=== PATIENT | male | born 1950 | race African-American/Black ===

== ENCOUNTER 2017-06-06 12:39 | Emergency (ER) | payer SELFPAY ==
[2017-06-06 12:58] VITALS: BP 147/67
--- NOTE | 2017-06-06 13:36 | UC ---
Michelle Carrizales Gabriel, scribed for Nancy Porter MD on 06/06/17 at 1322 . Dental HPI - HPI Summary HPI Summary: This patient is a 66 year old M presenting [place] [facility] [place] chief complaint of right sided jaw pain since two weeks ago. The patient rates the pain 8/10 in severity. Patient reports right sided jaw swelling that began 2 days ago and chills. Patient denies fever. Pt contacted his dentist and they cannot get him in until next week, he attempted to pull the tooth himself due to the pain. No intraoral edema. No difficult. no drooling. Patients medication reviewed during this visit. - History of Current Complaint Chief Complaint: UCDentalProblem Stated Complaint: DENTAL PAIN Time Seen by Provider: 06/06/17 13:15 Hx Obtained From: Patient Onset/Duration: Lasting Weeks, Still Present Severity: Moderate Pain Intensity: 8 Pain Scale Used: 0-10 Numeric - Allergies/Home Medications Allergies/Adverse Reactions: Allergies Allergy/AdvReac Type Severity Reaction Status Date / Time MS Lactose [Lactose] AdvReac Intermediate Diarrhea Verified 01/19/12 23:56 SSRIs Allergy Severe Hives Uncoded 01/19/12 23:56 Home Medications: Home Medications Gabapentin [Neurontin 800 mg tab] 800 mg PO BID 06/06/17 [History Confirmed ] PMH/Surg Hx/FS Hx/Imm Hx Previously Healthy: Yes Other Endocrine History: Lyme Psychological History: Schizophrenia - Surgical History Surgical History: None - Family History Known Family History: Negative: Cardiac Disease, Hypertension, Diabetes, Renal Disease, Respiratory Disease, Seizure Disorder, Blood Disorder - Social History Occupation: Unemployed Lives: Alone Alcohol Use: None Substance Use Type: None Smoking Status (MU): Former Smoker - Immunization History Most Recent Influenza Vaccination: DEC 2011 Most Recent Tetanus Shot: UKN Most Recent Pneumonia Vaccination: UKN Review of Systems Constitutional: Chills ENT: Dental Pain, Other - jaw sweling All Other Systems Reviewed And Are Negative: Yes Physical Exam Triage Information Reviewed: Yes Appearance: Well-Appearing, No Pain Distress, Well-Nourished Vital Signs: Initial Vital Signs Temp 98.4 F 06/06/17 12:53 Pulse 69 06/06/17 12:53 Resp 16 06/06/17 12:53 BP 147/67 06/06/17 12:53 Pulse Ox 100 06/06/17 12:53 Vital Signs Reviewed: Yes Eye Exam: Normal Eyes: Positive: Conjunctiva Clear ENT: Positive: Normal ENT inspection, Hearing grossly normal, TMs normal Dental: Positive: Percussion Tenderness @, Gross Decay/Caries @, Other: - Pt with poor dentition Pt with edema and discomfort right lower jaw no fluctuance no intraoral edema Neck exam: Normal Neck: Positive: Supple, Nontender, No Lymphadenopathy Respiratory Exam: Normal Respiratory: Positive: Chest non-tender, Lungs clear, Normal breath sounds, No respiratory distress, No accessory muscle use Cardiovascular Exam: Normal Cardiovascular: Positive: RRR, No Murmur Abdominal Exam: Normal Musculoskeletal Exam: Normal Neurological Exam: Normal Psychological Exam: Normal Skin Exam: Normal Dental Complaint Course/Dx - Course Course Of Treatment: BP noted and advised to follow up with PCP. Pt with dental abscess. Will start abx. motrin/apap. dental appt next week. return precautions discussed - Differential Dx/Diagnosis Provider Diagnoses: Elevated blood pressure with diagnoses of hypertension. dental pain, abscess Discharge - Discharge Plan Condition: Stable Disposition: HOME Prescriptions: Acetaminophen 650 mg PO Q6HR #30 capsule Penicillin VK 500 MG TAB(NF) [Penicillin VK 500 mg Tab] 500 mg PO TID #30 tab Patient Education Materials: Dental Abscess (ED) Referrals: No Primary Care Phys,NOPCP [Primary Care Provider] - Additional Instructions: Your blood pressure was elevated during today's visit. Please follow up with your primary care provider in 1-2 weeks. - Take anitbiotics as prescribed until gone - Okay to take tylenol every 6 hours for pain - take with food - wish and spit with warm, salt water 2-3 times a day - keep your appointment with your dentist as scheduled next week - if you have difficulty opening your mouth, drooling, fevers you should go to the emergency department The documentation as recorded by the Michelle madden Gabriel accurately reflects the service I personally performed and the decisions made by , Nancy Porter MD.
== END 2017-06-06 13:50 | disposition home or self-care (01) ==
LOC: UCEAST 12:39
DX: K04.7 Periapical abscess without sinus (principal); I10 Essential (primary) hypertension; Z87.891 Personal history of nicotine dependence
CPT/HCPCS: 99202; G0463

== ENCOUNTER 2017-08-21 14:33 | Emergency (ER) | payer MEDICARE, MEDICAID ==
[2017-08-21 16:08] LABS: ABS Basophils 0.1 10^3/ul (0-0.2); ABS Eosinophils 0.1 10^3/ul (0-0.6); ABS Lymphocytes 1.9 10^3/ul (1.0-4.8); ABS Monocytes 0.6 10^3/ul (0-0.8); ABS Neutrophils 4.9 10^3/ul (1.5-7.7); ABS Nucleated RBC 0 10^3/ul; Eosinophil % 1.4 % (0-6); Hematocrit 40 % (42-52); Hemoglobin 13.9 g/dl (14.0-18.0); Lymphocyte % 24.7 % (25-47); Mean Corpuscular HGB Conc 35 g/dl (31-36); Mean Corpuscular Hemoglobin 30 pg (27-31); Mean Corpuscular Volume 88 fL (80-94); Mean Platelet Volume 7.6 um3 (7.4-10.4); Nucleated Red Blood Cells % 0; Platelet Count 199 10^3/ul (150-450); Red Blood Count 4.58 10^6/ul (4.0-5.4); Red Cell Distribution Width 14 % (10.5-15); White Blood Count 7.5 10^3/ul (3.5-10.8)
[2017-08-21 16:13] LABS: Urine Appearance Clear; Urine Blood 1+ (Negative); Urine Color Yellow; Urine Ketones Trace (Negative); Urine Protein Negative (Negative); Urine Specific Gravity 1.021 (1.010-1.030); Urine Urobilinogen Positive (Negative)
[2017-08-21 16:24] LABS: EGFR Non-African American 80.3 (>60)
--- NOTE | 2017-08-21 21:30 | ED ---
Orlando Carrizales Stephanie, scribed for Drake Martinez MD on 08/21/17 at 1525 . Substance Abuse/Use - HPI Summary HPI Summary: The pt is a 67 y/o M presenting to the ED with c/o drug use that began 2 weeks ago. Symptoms include dehydration. He denies CP, SI and HI. 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 Recently dealers moved into the second floor of his location and he started using again in the past two weeks. The pt states that he has not been taking his meds for 2 weeks because of taking the crack. He is here today to get clean again and for safe haven from the dealers at his home. The pt states he has hallucinations and hears voices when not on his meds. - History Of Current Complaint Chief Complaint: EDMentalHealth Stated Complaint: MHE/DETOX Time Seen by Provider: 08/21/17 14:58 Hx Obtained From: Patient Onset/Duration of Drug/ETOH Abuse: Weeks - 2 Ingestion History: Type/Name Of Drug - Crack Timing Of Abuse: Daily Severity Currently: Mild Aggravating Factor(s): Nothing Alleviating Factor(s): Nothing Associated Signs And Symptoms: Other: - dehydration - Allergies/Home Medications Allergies/Adverse Reactions: Allergies Allergy/AdvReac Type Severity Reaction Status Date / Time lactose Allergy Diarrhea Verified 08/21/17 14:53 Penicillins Allergy Hives Verified 08/21/17 20:06 SSRIs Allergy Severe Hives Uncoded 08/21/17 14:53 Home Medications: Home Medications hydrOXYzine HCL TAB* [Atarax TAB 50 MG *] 50 mg PO BEDTIME 08/21/17 [History Confirmed 08/21/17] PMH/Surg Hx/FS Hx/Imm Hx Musculoskeletal History: Reports: Other Musculoskeletal History - 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 Sensory History: Denies: Hx Legally Blind EENT History: Denies: Hx Deafness Neurological History: Reports: Hx Migraine Psychiatric History: Reports: Hx Schizophrenia, Hx Substance Abuse Denies: Hx Eating Disorder, Hx of Violent Episodes Against Others - Surgical History Surgery Procedure, Year, and Place: NONE Infectious Disease History: Yes Infectious Disease History: Denies: Traveled Outside the [place] in Last 30 Days - Family History Known Family History: Negative: Cardiac Disease, Hypertension, Diabetes, Renal Disease, Respiratory Disease, Seizure Disorder, Blood Disorder - Social History Occupation: Unemployed Lives: Alone Alcohol Use: None Hx Substance Use: Yes Substance Use Type: Reports: Other - crack Hx Tobacco Use: Yes Smoking Status (MU): Former Smoker Review of Systems Positive: Other - dehydration. Negative: Fever Negative: Slurred Speech All Other Systems Reviewed And Are Negative: Yes Physical Exam - Summary Physical Exam Summary: General: well-appearing, no pain distress Skin: warm, color reflects adequate perfusion, dry Head: normal Eyes: EOMI, [place] ENT: normal Neck: supple, nontender Respiratory: CTA, breath sounds present Cardiovascular: RRR Abdomen: soft, nontender Bowel: present Musculoskeletal: normal, strength/ROM intact Neurological: normal, sensory/motor intact, A&O x3 Psychological: affect/mood appropriate Triage Information Reviewed: Yes Vital Signs On Initial Exam: Initial Vitals Temp Pulse Resp BP Pulse Ox 97.4 F 82 12 133/70 98 08/21/17 14:54 08/21/17 14:54 08/21/17 14:54 08/21/17 14:54 08/21/17 14:54 Vital Signs Reviewed: Yes Diagnostics - Vital Signs Vital Signs Temp Pulse Resp BP Pulse Ox 08/21/17 14:54 97.4 F 82 12 133/70 98 - Laboratory Lab Results: Lab Results 08/21/17 08/21/17 08/21/17 Range/Units 15:27 15:27 15:59 WBC 7.5 (3.5-10.8) 10^3/ul RBC 4.58 (4.0-5.4) 10^6/ul Hgb 13.9 L (14.0-18.0) g/dl Hct 40 L (42-52) % MCV 88 (80-94) fL MCH 30 (27-31) pg MCHC 35 (31-36) g/dl RDW 14 (10.5-15) % Plt Count 199 (150-450) 10^3/ul MPV 7.6 (7.4-10.4) um3 Neut % (Auto) 65.6 (38-83) % Lymph % (Auto) 24.7 L (25-47) % [place]cdowell % (Auto) 7.6 H (0-7) % Eos % (Auto) 1.4 (0-6) % Baso % (Auto) 0.7 (0-2) % Absolute Neuts (auto) 4.9 (1.5-7.7) 10^3/ul Absolute Lymphs (auto) 1.9 (1.0-4.8) 10^3/ul Absolute Monos (auto) 0.6 (0-0.8) 10^3/ul Absolute Eos (auto) 0.1 (0-0.6) 10^3/ul Absolute Basos (auto) 0.1 (0-0.2) 10^3/ul Absolute Nucleated RBC 0 10^3/ul Nucleated RBC % 0 Sodium (139-145) mmol/L Potassium (3.5-5.0) mmol/L Chloride (101-111) mmol/L Carbon Dioxide (22-32) mmol/L Anion Gap (2-11) mmol/L BUN (6-24) mg/dL Creatinine (0.67-1.17) mg/dL Est GFR ( Amer) (>60) Est GFR (Non-Af Amer) (>60) BUN/Creatinine Ratio (8-20) Glucose (70-100) mg/dL Calcium (8.6-10.3) mg/dL Total Bilirubin (0.2-1.0) mg/dL AST (13-39) U/L ALT (7-52) U/L Alkaline Phosphatase (34-104) U/L Total Creatine Kinase (10-223) U/L CK-MB (CK-2) (0.6-6.3) ng/mL Troponin I (<0.04) ng/mL Total Protein (6.4-8.9) g/dL Albumin (3.2-5.2) g/dL Globulin (2-4) g/dL Albumin/Globulin Ratio (1-3) TSH (0.34-5.60) mcIU/mL Urine Color Yellow Urine Appearance Clear Urine pH 5.0 (5-9) Ur Specific [place] 1.021 (1.010-1.030) Urine Protein Negative (Negative) Urine Ketones Trace A (Negative) Urine Blood 1+ A (Negative) Urine Nitrate Negative (Negative) Urine Bilirubin Negative (Negative) Urine Urobilinogen Positive A (Negative) Ur Leukocyte Esterase Negative (Negative) Urine WBC (Auto) Trace(0-5/hpf) (Absent) Urine RBC (Auto) 1+(3-5/hpf) A (Absent) Ur Squamous Epith Cells Present A (Absent) Urine Bacteria Absent (Absent) Urine Glucose Negative (Negative) Salicylates (<30) mg/dL Urine Opiates Screen None detected (None Detect) Acetaminophen mcg/mL Ur Barbiturates Screen None detected (None Detect) Ur Phencyclidine Scrn None detected (None Detect) Ur Amphetamines Screen None detected (None Detect) U Benzodiazepines Scrn None detected (None Detect) Urine Cocaine Screen Presumptive positive A (None Detect) U Cannabinoids Screen None detected (None Detect) Serum Alcohol (<10) mg/dL 08/21/17 Range/Units 15:59 WBC (3.5-10.8) 10^3/ul RBC (4.0-5.4) 10^6/ul Hgb (14.0-18.0) g/dl Hct (42-52) % MCV (80-94) fL MCH (27-31) pg MCHC (31-36) g/dl RDW (10.5-15) % Plt Count (150-450) 10^3/ul MPV (7.4-10.4) um3 Neut % (Auto) (38-83) % Lymph % (Auto) (25-47) % [place]cdowell % (Auto) (0-7) % Eos % (Auto) (0-6) % Baso % (Auto) (0-2) % Absolute Neuts (auto) (1.5-7.7) 10^3/ul Absolute Lymphs (auto) (1.0-4.8) 10^3/ul Absolute Monos (auto) (0-0.8) 10^3/ul Absolute Eos (auto) (0-0.6) 10^3/ul Absolute Basos (auto) (0-0.2) 10^3/ul Absolute Nucleated RBC 10^3/ul Nucleated RBC % Sodium 139 (139-145) mmol/L Potassium 3.8 (3.5-5.0) mmol/L Chloride 103 (101-111) mmol/L Carbon Dioxide 29 (22-32) mmol/L Anion Gap 7 (2-11) mmol/L BUN 13 (6-24) mg/dL Creatinine 0.94 (0.67-1.17) mg/dL Est GFR ( Amer) 103.3 (>60) Est GFR (Non-Af Amer) 80.3 (>60) BUN/Creatinine Ratio 13.8 (8-20) Glucose 119 H (70-100) mg/dL Calcium 9.4 (8.6-10.3) mg/dL Total Bilirubin 0.50 (0.2-1.0) mg/dL AST 27 (13-39) U/L ALT 19 (7-52) U/L Alkaline Phosphatase 57 (34-104) U/L Total Creatine Kinase 615 H (10-223) U/L CK-MB (CK-2) 8.8 H (0.6-6.3) ng/mL Troponin I 0.01 (<0.04) ng/mL Total Protein 7.6 (6.4-8.9) g/dL Albumin 4.3 (3.2-5.2) g/dL Globulin 3.3 (2-4) g/dL Albumin/Globulin Ratio 1.3 (1-3) TSH 1.52 (0.34-5.60) mcIU/mL Urine Color Urine Appearance Urine pH (5-9) Ur Specific [place] (1.010-1.030) Urine Protein (Negative) Urine Ketones (Negative) Urine Blood (Negative) Urine Nitrate (Negative) Urine Bilirubin (Negative) Urine Urobilinogen (Negative) Ur Leukocyte Esterase (Negative) Urine WBC (Auto) (Absent) Urine RBC (Auto) (Absent) Ur Squamous Epith Cells (Absent) Urine Bacteria (Absent) Urine Glucose (Negative) Salicylates < 2.50 (<30) mg/dL Urine Opiates Screen (None Detect) Acetaminophen < 15 mcg/mL Ur Barbiturates Screen (None Detect) Ur Phencyclidine Scrn (None Detect) Ur Amphetamines Screen (None Detect) U Benzodiazepines Scrn (None Detect) Urine Cocaine Screen (None Detect) U Cannabinoids Screen (None Detect) Serum Alcohol < 10 (<10) mg/dL Result Diagrams: 08/21/17 15:59 08/21/17 15:59 Lab Statement: Any lab studies that have been ordered have been reviewed, and results considered in the medical decision making process. - EKG 15:28 Cardiac Rate: NL EKG Rhythm: Sinus Rhythm - 74 BPM Ectopy: None EKG Interpretation: minimal ST elevation in anterior leads which is concave up EKG Comparison: No Significant Change - none for comparison Course/Dx - Course Course Of Treatment: MHE AND DISPOSITION PENDING AT SHIFT CHANGE - Diagnoses Provider Diagnoses: Mental health problem Discharge - Sign-Out/Discharge Documenting (check all that apply): Sign-Out Patient Signing out patient TO: Filiberto Isaac - Discharge Plan Condition: Stable Disposition: [facility] [place] Referrals: No Primary Care Phys,NOPCP [Primary Care Provider] - - Billing Disposition and Condition Condition: STABLE Disposition: [facility] [place] The documentation as recorded by the Orlando madden Stephanie accurately reflects the service I personally performed and the decisions made by me, Drake Martinez MD.
--- NOTE | 2017-08-22 08:39 | PN ---
Subjective - Subjective Date of Service: 08/22/17 Service Type: [id number] Hosp care 15 min low complexity Subjective: Melony is comfortable in the flex space. he denies SI and HI. He states he gets hallucinations when he doesn't take medication, which he has chosen not to do for 2 weeks since he has been using crack during that time and apparently didn' t want them to interact. He is known to me from the outpatient setting. He is not compliant with outpatient recommendations, does not attend the [facility] as requested and does not consistently take medications. Objective - Appearance Appearance: Well Developed/Nourished Dysmorphic Features: No Hygiene: Normal - Behavior Psychomotor Activities: Normal Exhibits Abnormal Movement: No - Attitude and Relatedness Attitude and Relatedness: Cooperative Eye Contact: Good - Speech Quality: Unpressured Latencies: Normal - Affect Observed Affect: Non-labile - Thought Process Patient's Thought Process: Coherent Thought Content: No Passive Wish, No Suicidal Planning, No Homicidal Ideation, No Paranoid Ideation - Level of Consciousness Level of Consciousness: Alert Plan - Plan Treatment Plan: Name: MELONY HAMMER Birthdate: 1950 [id number] - Discharge Plan Discharge Plan: Outpatient Follow Up Outpatient Program: [facility]
[2017-08-22 10:22] LABS: EGFR Non-African American 72.3 (>60)
--- NOTE | 2017-08-22 11:26 | PN ---
ED Flex Patient Progress Note Subjective: This is a 67 year-old M who is pending psychiatric evaluation secondary to ____ _auditory and visual hallucinations when not on meds, substance abuse . Pt offers no complaints at this time. His CPK and CKMB were elevated yesterday - most likely d/t dehydration/cocaine use. He admits to generalized muscle soreness today, especially in his lower back. Still urinating w/o difficulty. Denies CP, SOB, fatigue. NO other medical conditions other than chronic pain which he treats w/ gabapentin, ... Objective: Vitals: Most recent vital signs documented below. General NAD, Alert and oriented x3. Heart: rrr, S1/S2 EXTREMITIES: no edema Lungs: CTA, breathing easily INTEG: warm, dry, well perfused PSYCH: calm, polite, cooperative Laboratory: Current laboratory results documented below. Assessment: 1) Hallucinations 2) Rhabdomylosis Plan: 1) Pending psychiatric evaluation. Will follow up daily while in ED . 2) Pt provided with carafe of water and advised to drink multiple throughout the day - rechecked labs nad they are improving. He continues to urinate w/o difficulyt. Placed him on a low protein diet to reduce renal injury. Vitals to be checked q 2 hours and will update next provider to continue to monitor. ECG was w/o acute findings upon arrival. Vital Signs Temp Pulse Resp BP Pulse Ox 97.8 F 57 20 136/74 100 08/22/17 11:09 08/22/17 11:09 08/22/17 11:09 08/22/17 11:09 08/22/17 11:09 Lab Results - Entire Visit 08/22/17 08/22/17 08/21/17 09:54 09:54 15:59 WBC RBC Hgb Hct MCV MCH MCHC RDW Plt Count MPV Neut % (Auto) Lymph % (Auto) [place] % (Auto) Eos % (Auto) Baso % (Auto) Absolute Neuts (auto) Absolute Lymphs (auto) Absolute Monos (auto) Absolute Eos (auto) Absolute Basos (auto) Absolute Nucleated RBC Nucleated RBC % Sodium 139 139 Potassium 3.7 3.8 Chloride 105 103 Carbon Dioxide 30 29 Anion Gap 4 7 BUN 10 13 Creatinine 1.03 0.94 Est GFR ( Amer) 92.9 103.3 Est GFR (Non-Af Amer) 72.3 80.3 BUN/Creatinine Ratio 9.7 13.8 Glucose 75 119 H Lactic Acid 1.8 Calcium 9.6 9.4 Total Bilirubin 0.50 AST 27 ALT 19 Alkaline Phosphatase 57 Total Creatine Kinase 466 H 615 H CK-MB (CK-2) 5.7 8.8 H Troponin I 0.01 Total Protein 7.6 Albumin 4.3 Globulin 3.3 Albumin/Globulin Ratio 1.3 TSH 1.52 Urine Color Urine Appearance Urine pH Ur Specific [place] Urine Protein Urine Ketones Urine Blood Urine Nitrate Urine Bilirubin Urine Urobilinogen Ur Leukocyte Esterase Urine WBC (Auto) Urine RBC (Auto) Ur Squamous Epith Cells Urine Bacteria Urine Glucose Salicylates < 2.50 Urine Opiates Screen Acetaminophen < 15 Ur Barbiturates Screen Ur Phencyclidine Scrn Ur Amphetamines Screen U Benzodiazepines Scrn Urine Cocaine Screen U Cannabinoids Screen Serum Alcohol < 10 08/21/17 08/21/17 08/21/17 15:59 15:27 15:27 WBC 7.5 RBC 4.58 Hgb 13.9 L Hct 40 L MCV 88 MCH 30 MCHC 35 RDW 14 Plt Count 199 MPV 7.6 Neut % (Auto) 65.6 Lymph % (Auto) 24.7 L [place] % (Auto) 7.6 H Eos % (Auto) 1.4 Baso % (Auto) 0.7 Absolute Neuts (auto) 4.9 Absolute Lymphs (auto) 1.9 Absolute Monos (auto) 0.6 Absolute Eos (auto) 0.1 Absolute Basos (auto) 0.1 Absolute Nucleated RBC 0 Nucleated RBC % 0 Sodium Potassium Chloride Carbon Dioxide Anion Gap BUN Creatinine Est GFR ( Amer) Est GFR (Non-Af Amer) BUN/Creatinine Ratio Glucose Lactic Acid Calcium Total Bilirubin AST ALT Alkaline Phosphatase Total Creatine Kinase CK-MB (CK-2) Troponin I Total Protein Albumin Globulin Albumin/Globulin Ratio TSH Urine Color Yellow Urine Appearance Clear Urine pH 5.0 Ur Specific [place] 1.021 Urine Protein Negative Urine Ketones Trace A Urine Blood 1+ A Urine Nitrate Negative Urine Bilirubin Negative Urine Urobilinogen Positive A Ur Leukocyte Esterase Negative Urine WBC (Auto) Trace(0-5/hpf) Urine RBC (Auto) 1+(3-5/hpf) A Ur Squamous Epith Cells Present A Urine Bacteria Absent Urine Glucose Negative Salicylates Urine Opiates Screen None detected Acetaminophen Ur Barbiturates Screen None detected Ur Phencyclidine Scrn None detected Ur Amphetamines Screen None detected U Benzodiazepines Scrn None detected Urine Cocaine Screen Presumptive positive A U Cannabinoids Screen None detected Serum Alcohol
[2017-08-22 15:51] VITALS: BP 0/0
--- NOTE | 2017-08-23 20:37 | ED ---
Jocelyne Carrizales Julia, scribed for Tiffani Busby MD on 08/22/17 at 1501 . Progress - Progress Note Progress Note: Patient is signed out from Dr. Isaac at shift change pending disposition. - Consult/PCP Time Called: 18:06 Course/Dx - Course Course Of Treatment: Pt is signed out from Dr. Isaac at shift change awaiting disposition. Was informed that pt will be discharged by Dr. Gan with a diagnosis of adjustment disorder. Pt is very well known by Dr. Gan and the mental health evaluators, all who feel comfortable with discharge. - Diagnoses Provider Diagnoses: Adjustment disorder Discharge - Sign-Out/Discharge Documenting (check all that apply): Discharge/Admit/Transfer - Discharge Plan Condition: Stable Disposition: HOME Referrals: No Primary Care Phys,NOPCP [Primary Care Provider] - - Billing Disposition and Condition Condition: STABLE Disposition: HOME The documentation as recorded by the Jocelyne madden Julia accurately reflects the service I personally performed and the decisions made by , Tiffani Busby MD.
--- NOTE | 2017-08-24 20:18 | ED ---
Jocelyne Carrizales Julia, scribed for Tiffani Busby MD on 08/22/17 at 0727 . Progress - Progress Note Progress Note: Pt is signed out from Dr. Isaac at shift change. - Consult/PCP Time Called: 18:06 Course/Dx - Course Course Of Treatment: MHE AND DISPOSITION PENDING AT SHIFT CHANGE - Diagnoses Provider Diagnoses: Mental health problem Discharge - Sign-Out/Discharge Documenting (check all that apply): Receiving Sign-Out Receiving patient FROM: Filiberto Isaac - Discharge Plan Condition: Stable Referrals: No Primary Care Phys,NOPCP [Primary Care Provider] - The documentation as recorded by the Jocelyne madden Julia accurately reflects the service I personally performed and the decisions made by , Tiffani Busby MD.
--- NOTE | 2017-09-08 05:12 | ED ---
Michael Carrizales Angela, scribed for Filiberto Isaac MD on 08/21/17 at 2202 . Progress - Progress Note Progress Note: This pt was signed out by Dr. Martinez, pending disposition, awaiting MHE. At this time mental health evaluation is still pending. Therefore pt will be signed out to Dr. Busby, pending disposition, awaiting MHE. Course/Dx - Diagnoses Provider Diagnoses: Mental health problem Discharge - Sign-Out/Discharge Documenting (check all that apply): Sign-Out Patient, Receiving Sign-Out Signing out patient TO: Tiffani Busby Receiving patient FROM: Drake Martinez - Discharge Plan Condition: Stable Discharge Disposition Comment: signed out to Dr. Busby, pending dispo, awaiting MHE Referrals: No Primary Care Phys,NOPCP [Primary Care Provider] - The documentation as recorded by the Michael madden Angela accurately reflects the service I personally performed and the decisions made by , Filiberto Isaac MD.
== END 2017-08-22 15:47 | disposition home or self-care (01) ==
LOC: ED 14:33
DX: R44.0 Auditory hallucinations (principal); R44.1 Visual hallucinations; M62.82 Rhabdomyolysis; F43.20 Adjustment disorder, unspecified; Z88.0 Allergy status to penicillin; Z88.8 Allergy status to other drugs, medicaments and biological substances; Z87.891 Personal history of nicotine dependence
CPT/HCPCS: 36415; 80048; 80053; 80307; 80320; 80329; 81003; 81015; 82550; 82553; 83605; 84443; 84484; 85025; 87086; 93005; 99283; G0480

== ENCOUNTER 2018-03-25 14:31 | Emergency (ER) | payer MEDICARE, MEDICAID ==
[2018-03-25 14:43] VITALS: BP 159/89
--- NOTE | 2018-03-25 14:44 | UC ---
Respiratory Complaint HPI - HPI Summary HPI Summary: 67 yo male presents with sinus pain/pressure/congestion, chest congestion, and intermittently productive cough for the last 2 weeks. He has not been taking anything OTC due to cost. He does not currently smoke. Denies fever, chills, sore throat, SOB, chest pain. - History of Current Complaint Chief Complaint: UCRespiratory Stated Complaint: COUGH Time Seen by Provider: 03/25/18 14:44 Hx Obtained From: Patient Onset/Duration: Gradual Onset Severity Initially: Moderate Severity Currently: Severe Pain Intensity: 8 Pain Scale Used: 0-10 Numeric Character: Cough: Nonproductive - Allergies/Home Medications Allergies/Adverse Reactions: Allergies Allergy/AdvReac Type Severity Reaction Status Date / Time lactose Allergy Diarrhea Verified 03/25/18 14:44 Penicillins Allergy Hives Verified 03/25/18 14:44 SSRIs Allergy Severe Hives Uncoded 03/25/18 14:44 Home Medications: Home Medications Topiramate [Topamax] 800 mg PO DAILY WITH MEAL 03/25/18 [History Confirmed 03/25] hydrOXYzine HCl [Hydroxyzine HCl] 100 mg PO DAILY WITH MEAL 03/25/18 [History Confirmed 03/25/18] PMH/Surg Hx/FS Hx/Imm Hx Psychological History: Anxiety - Surgical History Surgical History: None Surgery Procedure, Year, and Place: NONE - Family History Known Family History: Negative: Cardiac Disease, Hypertension, Diabetes, Renal Disease, Respiratory Disease, Seizure Disorder, Blood Disorder - Social History Lives: With Family Alcohol Use: None Substance Use Type: Other Substance Use Comment - Amount & Last Used: former weed and crack Smoking Status (MU): Never Smoked Tobacco - Immunization History Most Recent Influenza Vaccination: DEC 2011 Most Recent Tetanus Shot: UKN Most Recent Pneumonia Vaccination: UK Review of Systems All Other Systems Reviewed And Are Negative: Yes Constitutional: Positive: Negative Skin: Positive: Negative Eyes: Positive: Negative ENT: Positive: Nasal Discharge, Sinus Congestion, Sinus Pain/Tenderness Respiratory: Positive: Cough Cardiovascular: Positive: Negative Gastrointestinal: Positive: Negative Neurovascular: Positive: Negative Neurological: Positive: Negative Psychological: Positive: Negative Physical Exam - Summary Physical Exam Summary: GENERAL: NAD. WDWN. No pain distress. SKIN: No rashes, sores, lesions, or open wounds. HEENT: Head: AT/NC Eyes: EOM intact. Conjunctiva clear without inflammation or discharge. Ears: Hearing grossly normal. TMs intact, no bulging, erythema, or edema. Nose: Nasal mucosa mildly swollen and erythematous without discharge. TTP frontal sinus. Positive post nasal drip Throat: Posterior oropharynx without exudates, erythema, or tonsillar enlargement. Uvula midline. NECK: Supple. Nontender. No lymphadenopathy. CHEST: CTAB. No r/r/w. No accessory muscle use. Breathing comfortably and in no distress. CV: RRR. Without m/r/g. Pulses intact. NEURO: Alert. PSYCH: Age appropriate behavior. Triage Information Reviewed: Yes Vital Signs: Initial Vital Signs Temp 97.6 F 03/25/18 14:37 Pulse 78 03/25/18 14:37 Resp 20 03/25/18 14:37 BP 159/89 03/25/18 14:37 Pulse Ox 99 03/25/18 14:37 Vital Signs Reviewed: Yes UC Diagnostic Evaluation - Laboratory O2 Sat by Pulse Oximetry: 99 Respiratory Course/Dx - Course Course Of Treatment: Sinusitis - Differential Dx/Diagnosis Provider Diagnosis: Sinusitis Discharge - Sign-Out/Discharge Documenting (check all that apply): Patient Departure All imaging exams completed and their final reports reviewed: No Studies - Discharge Plan Condition: Stable Disposition: HOME Prescriptions: Amoxicillin PO (*) [Amoxicillin 875 MG (*)] 875 mg PO BID #14 tab Patient Education Materials: Sinusitis (ED) Referrals: No Primary Care Phys,NOPCP [Primary Care Provider] - Additional Instructions: If you develop a fever, shortness of breath, chest pain, new or worsening symptoms - please call your PCP or go to the ED. Your blood pressure was high at todays visit. Please see your primary provider within 4 weeks for recheck and re-evaluation. - Billing Disposition and Condition Condition: STABLE Disposition: Home
== END 2018-03-25 15:00 | disposition home or self-care (01) ==
LOC: UCEAST 14:31
DX: J32.9 Chronic sinusitis, unspecified (principal); Z88.0 Allergy status to penicillin
CPT/HCPCS: 99212; G0463

== ENCOUNTER 2018-04-05 14:39 | Emergency (ER) | payer MEDICARE, MEDICAID ==
[2018-04-05 15:25] VITALS: BP 140/78
--- NOTE | 2018-04-05 16:49 | UC ---
Respiratory Complaint HPI - HPI Summary HPI Summary: PATIENT COMPLAINS OF SEVERAL WEEKS OF COUGH, CHEST CONGESTION AND SUBJECTIVE FEVER. WAS SEEN HERE IN 03/25/18 AND GIVEN ONE WEEK OF AMOXICILLIN. HE STATES NO IMPROVEMENT AFTER FINISHING THE MEDICINE. - History of Current Complaint Chief Complaint: UCGeneralIllness Stated Complaint: COUGH Time Seen by Provider: 04/05/18 15:58 Hx Obtained From: Patient Onset/Duration: Gradual Onset, Lasting Weeks, Still Present Timing: Constant Severity Initially: Moderate Severity Currently: Moderate Pain Intensity: 9 Pain Scale Used: 0-10 Numeric Character: Cough: Nonproductive Aggravating Factors: Nothing Alleviating Factors: Nothing Associated Signs And Symptoms: Positive: Fever - SUBJECTIVE, URI, Nasal Congestion. Negative: Wheezing - Allergies/Home Medications Allergies/Adverse Reactions: Allergies Allergy/AdvReac Type Severity Reaction Status Date / Time lactose Allergy Diarrhea Verified 04/05/18 15:25 Penicillins Allergy Hives Verified 04/05/18 15:25 SSRIs Allergy Severe Hives Uncoded 04/05/18 15:25 PMH/Surg Hx/FS Hx/Imm Hx Psychological History: Schizophrenia - Surgical History Surgical History: None Surgery Procedure, Year, and Place: NONE - Family History Known Family History: Negative: Cardiac Disease, Hypertension, Diabetes, Renal Disease, Respiratory Disease, Seizure Disorder, Blood Disorder - Social History Alcohol Use: None Substance Use Type: None Substance Use Comment - Amount & Last Used: former weed and crack Smoking Status (MU): Never Smoked Tobacco - Immunization History Most Recent Influenza Vaccination: DEC 2011 Most Recent Tetanus Shot: UKN Most Recent Pneumonia Vaccination: UK Review of Systems All Other Systems Reviewed And Are Negative: Yes Constitutional: Positive: Fever ENT: Positive: Nasal Discharge Respiratory: Positive: Cough Cardiovascular: Positive: Negative Gastrointestinal: Positive: Negative Physical Exam Triage Information Reviewed: Yes Appearance: Well-Appearing, No Pain Distress, Well-Nourished Vital Signs: Initial Vital Signs Temp 98.3 F 04/05/18 15:20 Pulse 84 04/05/18 15:20 Resp 18 04/05/18 15:20 BP 140/78 04/05/18 15:20 Pulse Ox 99 04/05/18 15:20 Vital Signs Reviewed: Yes Eyes: Positive: Conjunctiva Clear ENT: Positive: Hearing grossly normal, Pharynx normal, TMs normal - LEFT TM OBSTRUCTED BY CERUMEN. RIGHT TM NORMAL Neck: Positive: Supple, Nontender, No Lymphadenopathy Respiratory Exam: Normal Cardiovascular Exam: Normal Abdomen Description: Positive: Soft Musculoskeletal: Positive: No Edema Neurological: Positive: Alert Psychological: Positive: Age Appropriate Behavior Skin: Negative: Rashes UC Diagnostic Evaluation - Laboratory O2 Sat by Pulse Oximetry: 99 - Radiology Radiology Interpretation Completed By: Radiologist Summary of Radiographic Findings: CXR UNREMARKABLE Respiratory Course/Dx - Course Course Of Treatment: CHEST X-RAY UNREMARKABLE. PATIENT LIKELY HAS A VIRAL BRONCHITIS HOWEVER IS INSISTING ON ANTIBIOTIC. HAS ALREADY HAD AMOXICILLIN WITH NO EFFECT. WILL GIVE AZITHROMYCIN. ADVISED ER FOLLOW-UP IF HIS SYMPTOMS WORSEN. FOLLOW-UP WITH [facility] IN THE NEXT 1-2 WEEKS. PT DECLINED PREDNISONE IT MAY CONTAIN LACTOSE AND HE HAS AN INTOLERANCE. - Differential Dx/Diagnosis Provider Diagnosis: Bronchitis Discharge - Sign-Out/Discharge Documenting (check all that apply): Patient Departure All imaging exams completed and their final reports reviewed: Yes - Discharge Plan Condition: Stable Disposition: HOME Prescriptions: Azithromycin 500 mg PO DAILY #5 tab Benzonatate CAP* [Tessalon CAP*] 1 - 2 cap PO TID PRN #30 cap PRN Reason: Cough Patient Education Materials: Acute Bronchitis (ED) Referrals: [facility] [Outside] - 2 Weeks Additional Instructions: CHEST X-RAY TODAY WAS UNREMARKABLE. YOUR SYMPTOMS ARE LIKELY VIRALLY MEDIATED BUT GIVEN THE LENGTH OF TIME YOU HAVE BEEN ILL WE WILL COVER YOU WITH ANOTHER ANTIBIOTIC. IF YOU START THE MEDICINE BE SURE TO TAKE IT FOR THE FULL COURSE. REST, HYDRATE, OTC MEDS NEEDED. WILL ALSO TREAT WITH COUGH MEDICINE. SEEK FOLLOW-UP WITH YOUR PCP IF YOU ARE NOT IMPROVING OVER THE NEXT 1-2 WEEKS. IF YOU DO NOT RESPOND AFTER 2 ROUNDS OF ANTIBIOTICS YOU ARE UNLIKELY TO BENEFIT FROM A THIRD COURSE. GO TO THE ED WITHOUT FAIL IF YOU DEVELOP WORSENING COUGH, SHORTNESS OF BREATH, FEVER, CHEST PAIN, NAUSEA OR ANY OTHER CONCERNING SYMPTOMS. CALL THE NUMBER BELOW FOR ASSISTANCE IN ESTABLISHING WITH A PCP An additional resource available to assist in finding the appropriate physician for your health care needs is the [facility] ([facility]). You may contact them by calling [phone]. - Billing Disposition and Condition Condition: STABLE Disposition: Home
== END 2018-04-05 17:30 | disposition home or self-care (01) ==
LOC: UCEAST 14:39
DX: J40 Bronchitis, not specified as acute or chronic (principal); Z88.8 Allergy status to other drugs, medicaments and biological substances; Z88.0 Allergy status to penicillin; Z91.011 Allergy to milk products
CPT/HCPCS: 71046; 99212; G0463

== ENCOUNTER 2018-08-08 21:04 | Emergency (ER) | payer MEDICARE ==
[2018-08-08 21:52] LABS: Hematocrit 44 % (36-46); Hemoglobin 14.6 g/dL (14.0-18.0); Mean Corpuscular HGB Conc 33 g/dL (31-36); Mean Corpuscular Hemoglobin 30 pg (27-31); Mean Corpuscular Volume 90 fL (80-94); Red Blood Count 4.89 10^6 /uL (4.18-5.48); Red Cell Distribution Width 14 % (10.5-15); White Blood Count 12.4 10^3/uL (3.5-10.8)
[2018-08-08 21:55] LABS: INR 1.15 (0.82-1.09)
[2018-08-08 22:03] LABS: BUN/Creatinine Ratio 12.2 (8-20); Calcium 9.1 mg/dL (8.6-10.3); EGFR African American 92.3 (>60); EGFR Non-African American 76.3 (>60); Potassium 3.7 mmol/L (3.5-5.0)
[2018-08-08 22:14] LABS: ABS Basophils 0 10^3/ul (0-0.2); ABS Eosinophils 0.1 10^3/ul (0-0.6); ABS Lymphocytes 1.8 10^3/ul (1.0-4.8); ABS Monocytes 0.6 10^3/ul (0-0.8); ABS Neutrophils 9.9 10^3/ul (1.5-7.7); ABS Nucleated RBC 0 10^3/ul; Eosinophil % 0.4 %; Lymphocyte % 14.4 %; Nucleated Red Blood Cells % 0
--- NOTE | 2018-08-08 23:07 | ED ---
GI/ HPI - HPI Summary HPI Summary: Pt is a 68 y/o male who presents to the ED c/o hematuria. For the past few days hes had a large volume of malodorous urine. Around 20:00 today he began to have gross hematuria with clots. Pt was able to fully empty his bladder, and bladder scanner revealed residual of <30 cc. He denies any injury to his genital area or fever. He has a hx of crack cocaine abuse. Pt denies any alcohol use. He uses Viagra occasionally, however denies using any tonight. Pt denies the use of blood thinners. - History of Current Complaint Chief Complaint: EDUrogenitalProblems Stated Complaint: "BLOOD IN URINE PER EMS" Hx Obtained From: Patient Onset/Duration: Started Hours Ago - 20:00, Still Present Timing: Constant Current Severity: Severe Pain Intensity: 10 Additional Locations for Males: Penis Associated Signs and Symptoms: Positive: Hematuria, Dysuria. Negative: Fever Aggravating Factor(s): Urination - Allergy/Home Medications Allergies/Adverse Reactions: Allergies Allergy/AdvReac Type Severity Reaction Status Date / Time lactose Allergy Diarrhea Verified 08/08/18 21:08 Penicillins Allergy Hives Verified 08/08/18 21:08 SSRIs Allergy Severe Hives Uncoded 08/08/18 21:08 PMH/Surg Hx/FS Hx/Imm Hx Endocrine/Hematology History: Denies: Hx Diabetes, Hx Thyroid Disease Cardiovascular History: Denies: Hx Hypertension Respiratory History: Denies: Hx Asthma, Hx Chronic Obstructive Pulmonary Disease (COPD) GI History: Denies: Hx Ulcer Musculoskeletal History: Reports: Other Musculoskeletal History - 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 Sensory History: Denies: Hx Legally Blind, Hx Deafness Opthamlomology History: Denies: Hx Legally Blind Neurological History: Reports: Hx Migraine Psychiatric History: Reports: Hx Schizophrenia, Hx Substance Abuse Denies: Hx Eating Disorder, Hx of Violent Episodes Against Others - Surgical History Surgery Procedure, Year, and Place: NONE Infectious Disease History: No Infectious Disease History: Denies: Hx Hepatitis, Hx Human Immunodeficiency Virus (HIV), Traveled Outside the [place] in Last 30 Days - Family History Known Family History: Negative: Cardiac Disease, Hypertension, Diabetes, Renal Disease, Respiratory Disease, Seizure Disorder, Blood Disorder - Social History Alcohol Use: None Hx Substance Use: Yes Substance Use Type: Reports: Cocaine, Marijuana Substance Use Comment - Amount & Last Used: former weed and crack Hx Tobacco Use: No Smoking Status (MU): Never Smoked Tobacco Review of Systems Negative: Fever Positive: dysuria, hematuria, other - malodorous urine All Other Systems Reviewed And Are Negative: Yes Physical Exam - Summary Physical Exam Summary: Appearance: well appearing, no pain distress Skin: warm, dry, reflects adequate perfusion Head/face: normal Eyes: EOMI, [place] ENT: mucous membranes moist Neck: supple, non-tender Respiratory: CTA, breath sounds present Cardiovascular: RRR, pulses symmetrical Abdomen: non-tender, soft Bowel Sounds: present Musculoskeletal: normal, strength/ROM intact Neuro: normal, sensory motor intact, A&Ox3 : visualized urine grossly blood with clots Triage Information Reviewed: Yes Vital Signs On Initial Exam: Initial Vitals Temp Pulse Resp BP Pulse Ox 99.7 F 85 20 165/103 99 08/08/18 21:05 08/08/18 21:05 08/08/18 21:05 08/08/18 21:05 08/08/18 21:05 Vital Signs Reviewed: Yes Diagnostics - Vital Signs Vital Signs Temp Pulse Resp BP Pulse Ox 08/08/18 21:05 99.7 F 85 20 165/103 99 - Laboratory Lab Results: Lab Results 08/08/18 08/08/18 08/08/18 Range/Units 21:41 21:41 21:41 WBC 12.4 H (3.5-10.8) 10^3/uL RBC 4.89 (4.18-5.48) 10^6 /uL Hgb 14.6 (14.0-18.0) g/dL Hct 44 (36-46) % MCV 90 (80-94) fL MCH 30 (27-31) pg MCHC 33 (31-36) g/dL RDW 14 (10.5-15) % Plt Count (150-450) 10^3/uL MPV Not Reportable Neut % (Auto) 80.0 % Lymph % (Auto) 14.4 % White % (Auto) 4.8 % Eos % (Auto) 0.4 % Baso % (Auto) 0.4 % Absolute Neuts (auto) 9.9 H (1.5-7.7) 10^3/ul Absolute Lymphs (auto) 1.8 (1.0-4.8) 10^3/ul Absolute Monos (auto) 0.6 (0-0.8) 10^3/ul Absolute Eos (auto) 0.1 (0-0.6) 10^3/ul Absolute Basos (auto) 0 (0-0.2) 10^3/ul Absolute Nucleated RBC 0 10^3/ul Nucleated RBC % 0 INR (Anticoag Therapy) 1.15 H (0.82-1.09) Sodium 137 (135-145) mmol/L Potassium 3.7 (3.5-5.0) mmol/L Chloride 105 (101-111) mmol/L Carbon Dioxide 25 (22-32) mmol/L Anion Gap 7 (2-11) mmol/L BUN 12 (6-24) mg/dL Creatinine 0.98 (0.67-1.17) mg/dL Est GFR ( Amer) 92.3 (>60) Est GFR (Non-Af Amer) 76.3 (>60) BUN/Creatinine Ratio 12.2 (8-20) Glucose 119 H (70-100) mg/dL Calcium 9.1 (8.6-10.3) mg/dL Result Diagrams: 08/08/18 21:41 08/08/18 21:41 Lab Statement: Any lab studies that have been ordered have been reviewed, and results considered in the medical decision making process. - CT Urogram CT CT Interpretation Completed By: Radiologist Summary of CT Findings: 1. No nephrolithiasis or hydronephrosis. 2. Diffuse wall thickening of the urinary bladder which may be due to cystitis. 3. Enlarged prostate gland. 4. Hepatomegaly. ED physician reviewed radiology report. Re-Evaluation - Re-Evaluation First Eval Re-Evaluation Time: 00:48 Change: Unchanged Comment: Discussed CT results. He is refusing transfer. Second Eval Re-Evaluation Time: 00:58 Change: Unchanged Comment: Pt is now accepting transfer. GIGU Course/Dx - Course Course Of Treatment: Patient presents with gross hematuria urinating clots here. The urine turned much bloodier and a Guillen catheter was placed. We attempted to irrigate this however the blood continued and so continuous bladder irrigation was initiated. He continued to have several clots throughout his course the had to be manually irrigated out. A CT urogram was performed to look for source of bleeding. He has diffuse wall thickening of the bladder consistent with cystitis and so a dose of Rocephin was given. He is not on any anticoagulants. There is no urology coverage at this facility for the next several days and so the patient would require transfer. He initially declined this but later stated that he would go to [place] where his children live. Transfer was arranged with [facility] where the patient will go to the ER and be admitted through the hospitalist service. Accepting physician is . - Diagnoses Differential Diagnoses - Male: Other - Bladder mass, renal mass, cystitis, adverse effect of anticoagulant Provider Diagnoses: Acute cystitis, Gross hematuria - Physician Notifications Discussed Care Of Patient With: Transfer Center Time Discussed With Above Provider: 01:12 Instructed by Provider To: Other - Spoke to transfer center. At At 1:29 Marixa Townsend MD accepts pt for admission to the ED at [facility]. - Critical Care Time Critical Care Time: 30-74 min - Critical care time is exclusive of separately billable procedures Discharge - Sign-Out/Discharge Documenting (check all that apply): Patient Departure - Transfer Patient Received Moderate/Deep Sedation with Procedure: No - Discharge Plan Condition: Fair Disposition: TRANS HIGHER LVL OF CARE FAC Referrals: Eda Mari DO [Primary Care Provider] - - Billing Disposition and Condition Condition: FAIR Disposition: Trans Higher Lvl of Care Fac - Attestation Statements Document Initiated by Scribe: Yes Documenting Scribe: Mehnaz Medley Provider For Whom Scribe is Documenting (Include Credential): Jorge Rosario MD Scribe Attestation: IMehnaz, scribed for Jorge Rosario MD on 08/09/18 at 0157. Scribe Documentation Reviewed: Yes Provider Attestation: The documentation as recorded by the Mehnaz madden accurately reflects the service I personally performed and the decisions made by me, Jorge Rosario MD Status of Scribe Document: Viewed
[2018-08-08] MEDS ORDERED: Iohexol 300* (CONTRAST) 10 ML SDV IV ONE (23:30)
[2018-08-09] MEDS ORDERED: cefTRIAXone(*) 1 GM in NS 0.9% 50 ML* 50 ML IVPB ONE (00:46)
[2018-08-09 02:07] VITALS: BP 154/85
== END 2018-08-09 02:05 | disposition short-term general hospital (02) ==
LOC: ED 21:04
DX: N30.01 Acute cystitis with hematuria (principal); F20.9 Schizophrenia, unspecified
CPT/HCPCS: 36415; 74178; 76377; 80048; 85025; 85610; 96360; 99284; J0696; Q9967